=== PATIENT | female | born 1990 | race Caucasian/White ===

== ENCOUNTER 2017-02-08 20:40 | Emergency (ER) | payer OTHER ==
[~2017-02-08] VITALS: Ht 170.2 cm; Wt 120.2 kg
[2017-02-08 20:55] VITALS: TEMP 37.3; Ht 170.2 cm; Wt 120.2 kg
[2017-02-08] MEDS ORDERED: SERT-234 PO (21:29)
[2017-02-08] MEDS ORDERED: OPTIRAY 320 IV PRN (21:30)
[2017-02-08] MEDS ORDERED: BUSP-8 PO (21:33)
[2017-02-08 21:45] LABS: MEAN CELL VOLUME 80.9 fL (80-100); MEAN CORPUSCULAR HGB CONC 35.9 g/dl (32-36); PLATELET COUNT 285 K/uL (130-400); RED BLOOD COUNT 5.07 M/uL (4.2-5.4); WHITE BLOOD COUNT 9.64 K/uL (4.8-10.8)
[2017-02-08 21:50] LABS: ISTAT IONIZED CALCIUM 1.17 mmol/l (1.12-1.32)
--- NOTE | 2017-02-08 22:01 | DIAGNOSTIC IMAGING REPORT ---
ABD/PELVIS IV CONTRAST ONLY CT DOSE: 1745.91 mGy.cm HISTORY: Flank pain rt lower abd pain TECHNIQUE: Multiaxial CT images of the abdomen and pelvis were performed following the use of intravenous contrast. A dose lowering technique was utilized adhering to the principles of ALARA. COMPARISON STUDY: None. FINDINGS: The lung bases are clear. The liver, spleen, gallbladder, pancreas, kidneys, and adrenal glands are within normal limits. No bowel wall thickening or obstruction. The pelvic organs are unremarkable. No suspicious lytic or blastic osseous lesions. The appendix is normal. Several mesenteric nodes somewhat more prominent in the right mid abdominal region. This consistent with a component of mesenteric adenitis. Chronic sigmoid diverticulosis. No evidence for acute diverticulitis. IMPRESSION: 1. Mild/moderate mesenteric adenitis. 2. Normal appendix. 3. Chronic sigmoid diverticulosis. 4. Mild fatty infiltration of liver. The above report was generated using voice recognition software. It may contain grammatical, syntax or spelling errors. Electronically signed by: Ayush Christiansen M.D. 02/08/2017 10:00 PM Dictated Date/Time: 02/08/2017 9:58 PM
[2017-02-08 22:31] LABS: MANUAL MICROSCOPIC REQUIRED? NO; REVIEW REQ? NO; URINE APPEARANCE CLOUDY (CLEAR); URINE BILIRUBIN NEG (NEG); URINE COLOR YELLOW; URINE EPITHELIAL CELL AUTO >30 /lpf (0-5); URINE NITRITE NEG (NEG); URINE PH 7.5 (4.5-7.5); URINE SPECIFIC GRAVITY 1.018 (1.000-1.030); UROBILINOGEN NEG (NEG); ZZUR CULT IF INDIC CLEAN CATCH NO
--- NOTE | 2017-02-08 22:41 | EMERGENCY ROOM VISIT NOTE ---
History Report prepared by Whitney: Bijal Ricardo Under the Supervision of: Dr. Anders Boone D.O. First contact with patient: 21:06 Chief Complaint: ABDOMINAL PAIN Stated Complaint: STOMACH PAIN,NAUSEA,BACK PAIN History of Present Illness The patient is a 26 year old female who presents to the Emergency Room with complaints of constant stabbing abdominal pain beginning yesterday morning. The patient states that she is mainly having abdominal pain and her lower back has also been hurting since yesterday morning when she woke up. She notes that the abdominal pain started when she woke up and the other symptoms gradually worsened. She reports that she has had nausea and fatigue and after going to urgent care today, she was told to come here. The patient notes that they were concerned of appendicitis. She notes that her LNMP was just over 1 month ago. She denies any history of . Source of History: patient Onset: yesterday morning Position: abdomen Quality: stabbing Timing: constant Associated Symptoms: + nausea, + back pain Note: Pt complains of general fatigue. Review of Systems See HPI for pertinent positives & negatives. A total of 10 systems reviewed and were otherwise negative. Past Medical & Surgical Surgical Problems: (1) Hx of tonsillectomy Family History Cancer Diabetes mellitus Gallbladder disease Heart disease Hypertension Kidney disease Kidney stones Seizures Social History Smoking Status: Never Smoker Smokeless Tobacco Use: No Alcohol Use: none Marital Status: Housing Status: lives with family Occupation Status: employed Current/Historical Medications Scheduled Buspirone Hcl (Buspirone Hcl), 10 MG PO BID Sertraline (Zoloft), 100 MG PO DAILY Allergies Coded Allergies: Brianna (Verified Allergy, Severe, Throat Closes, 02/08/17) Aspirin (Verified Allergy, Intermediate, Stomach cramping and hives, ) Physical Exam Vital Signs Date Time Temp Pulse Resp B/P (MAP) Pulse Ox O2 Delivery O2 Flow Rate FiO2 02/08/17 20:55 37.3 90 18 147/90 99 Room Air Physical Exam CONSTITUTIONAL/VITAL SIGNS: Reviewed / noted above. GENERAL: Non-toxic in appearance. INTEGUMENTARY: Warm, dry, and [place]. HEAD: Normocephalic. EYES: without scleral icterus or trauma. ENT/OROPHARYNX: clear and moist. LYMPHADENOPATHY/NECK: Is supple without lymphadenopathy or meningismus. RESPIRATORY: Lungs clear and equal. CARDIOVASCULAR: Regular rate and rhythm. GI/ABDOMEN: Soft, tenderness to palpation to right mid abdominal region. No organomegaly or pulsatile mass. No rebound or guarding. Normal bowel sounds. EXTREMITIES: Warm and well perfused. BACK: No CVA tenderness. NEUROLOGICAL: Intact without focal deficits. PSYCHIATRIC: normal affect. MUSCULOSKELETAL: Normally developed with good muscle tone. Medical Decision & Procedures ER Provider Diagnostic Interpretation: CT results as stated below per my review and radiologist interpretation: ABD/PELVIS IV CONTRAST ONLY FINDINGS: The lung bases are clear. The liver, spleen, gallbladder, pancreas, kidneys, and adrenal glands are within normal limits. No bowel wall thickening or obstruction. The pelvic organs are unremarkable. No suspicious lytic or blastic osseous lesions. The appendix is normal. Several mesenteric nodes somewhat more prominent in the right mid abdominal region. This consistent with a component of mesenteric adenitis. Chronic sigmoid diverticulosis. No evidence for acute diverticulitis. IMPRESSION: 1. Mild/moderate mesenteric adenitis. 2. Normal appendix. 3. Chronic sigmoid diverticulosis. 4. Mild fatty infiltration of liver. The above report was generated using voice recognition software. It may contain grammatical, syntax or spelling errors. Electronically signed by: Ayush Christiansen M.D. 02/08/2017 10:00 PM Dictated Date/Time: 02/08/2017 9:58 PM Laboratory Results 02/08/17 21:29 Test 02/08/17 21:29 02/08/17 21:37 Red Blood Count 5.07 M/uL (4.2-5.4) Mean Corpuscular Volume 80.9 fL (80-100) Mean Corpuscular Hemoglobin 29.0 pg (25-34) Mean Corpuscular Hemoglobin Concent 35.9 g/dl (32-36) RDW Standard Deviation 36.6 fL (36.4-46.3) RDW Coefficient of Variation 12.6 % (11.5-14.5) Mean Platelet Volume 10.0 fL (7.4-10.4) Urine Color YELLOW Urine Appearance CLOUDY (CLEAR) Urine pH 7.5 (4.5-7.5) Urine Specific [place] 1.018 (1.000-1.030) Urine Protein NEG (NEG) Urine Glucose (UA) NEG (NEG) Urine Ketones NEG (NEG) Urine Occult Blood NEG (NEG) Urine Nitrite NEG (NEG) Urine Bilirubin NEG (NEG) Urine Urobilinogen NEG (NEG) Urine Leukocyte Esterase NEG (NEG) Urine WBC (Auto) 1-5 /hpf (0-5) Urine RBC (Auto) 5-10 /hpf (0-4) Urine Hyaline Casts (Auto) 1-5 /lpf (0-5) Urine Epithelial Cells (Auto) >30 /lpf (0-5) Urine Bacteria (Auto) NEG (NEG) Urine Test NEG (NEG) Bedside Hemoglobin 15.0 g/dl (12.0-16.0) Bedside Hematocrit 44 % (37-47) Bedside Sodium 141 mEq/L (135-144) Bedside Potassium 3.7 mEq/L (3.3-5.0) Bedside Chloride 104 mEq/L (101-112) Bedside Total CO2 25 mEq/l (24-31) Anion Gap 17.0 mmol/L (16-25) Bedside Blood Urea Nitrogen 17 mg/dl (7-18) Bedside Creatinine 1.0 mg/dl (0.6-1.3) Bedside Glucose (other) 95 mg/dl (70-99) Bedside Ionized Calcium (Rosario) 1.17 mmol/l (1.12-1.32) Laboratory results as stated above per my review. ED Course 2105: Previous medical records were reviewed. The patient was evaluated in room B10. A complete history and physical examination was performed. Medical Decision Differential considered: pancreatitis, hepatitis, or acute cholecystitis, AAA, UTI, pyelonephritis, kidney stones, appendicitis, diverticulitis, shingles, bowel obstruction mesenteric ischemia, intussusception,hernia, ovarian torsion , ruptured ovarian cyst,ectopic , . This is a 26-year-old female who presents to the ED with a chief complaint of right-sided abdominal pain. She was referred from the local urgent care. The patient reports symptoms onset yesterday morning when she awoke. She had some nausea associated with her symptoms. The patient on exam has some right mid abdominal tenderness. A CT scan of the abdomen and pelvis reveals findings suggesting mesenteric adenitis. test is negative. Urine did not show infection. CBC and CMP were unremarkable. The patient was told the results. The patient is felt to be stable for discharge and outpatient follow- up. Medication Reconcilliation Current Medication List: was personally reviewed by me Blood Pressure Screening Patient's blood pressure: Elevated blood pressure Blood pressure disposition: Elevated BP felt to be situational Impression Primary Impression: Mesenteric adenitis Scribe Attestation The scribe's documentation has been prepared under my direction and personally reviewed by me in its entirety. I confirm that the note above accurately reflects all work, treatment, procedures, and medical decision making performed by me. Departure Information Dispostion Home / Self-Care Patient Instructions My [facility] Additional Instructions Follow-up with your doctor for further care and evaluation in 1-2 days if symptoms. Return to the emergency department for worsening or new symptoms or any concerns. You have been examined and treated today on an emergency basis only. This is not a substitute for, or an effort to provide, complete comprehensive medical care. It is impossible to recognize and treat all injuries or illnesses in a single emergency department visit. It is therefore important that you follow up closely with your doctor. Call as soon as possible for an appointment.
[2017-02-08 22:52] VITALS: BP 97/70; PULSE 80; O2SAT 97
== END 2017-02-08 22:53 | disposition home or self-care (01) ==
LOC: C.EDB 20:41
DX: I88.0 Nonspecific mesenteric lymphadenitis (principal); Z80.9 Family history of malignant neoplasm, unspecified; Z83.3 Family history of diabetes mellitus; Z83.79 Family history of other diseases of the digestive system; Z82.49 Family history of ischemic heart disease and other diseases of the circulatory system; Z84.1 Family history of disorders of kidney and ureter; Z79.899 Other long term (current) drug therapy

== ENCOUNTER 2018-08-24 11:45 | Observation (INO) ==
[2018-08-24] MEDS ORDERED: ONDANSETRON INJ 2 MG/ML 2 ML VIAL IV STA (11:55)
[2018-08-24] MEDS ORDERED: MoRPHine SULFATE 4 MG/ML 1 ML CARP\\VIAL IV STA ×2 (11:55→14:28)
[2018-08-24] MEDS ORDERED: SODIUM CHLORIDE 0.9% 1000ML 1,000 ML IV SCH (12:00)
[2018-08-24 12:14] LABS: Basophils # (auto) 0.02 K/uL (0-0.2); Basophils % (auto) 0.1 %; Eosinophils # (auto) 0.02 K/uL (0-0.5); Eosinophils % (auto) 0.1 %; Hematocrit (blood only) 41.2 % (37-47); Hemoglobin 14.9 g/dL (12.0-16.0); Immature Granulocytes # (auto) 0.05 K/uL (0.00-0.02); Immature Granulocytes % (auto) 0.3 %; Lymphocytes # (auto) 1.66 K/uL (1.2-3.4); Mean Corpuscular Hgb Conc 36.2 g/dL (32-36); Mean Corpuscular Volume 76.9 fL (80-100); Mean Platelet Volume 10.2 fL (7.4-10.4); Monocytes # (auto) 1.02 K/uL (0.11-0.59); Monocytes % (auto) 6.8 %; Neutrophils # (auto) 12.27 K/uL (1.4-6.5); Neutrophils % (auto) 81.7 %; Platelet Count 291 K/uL (130-400); RDW Coefficient of Variation 14.3 % (11.5-14.5); RDW Standard Deviation 40.1 fL (36.4-46.3); Red Blood Count 5.36 M/uL (4.2-5.4); White Blood Count 15.04 K/uL (4.8-10.8)
[2018-08-24 12:37] LABS: Albumin Globulin Ratio 1.1 (0.9-2); Albumin Level 4.4 gm/dl (3.4-5.0); BUN Creatinine Ratio 15.5 (10-20); Bilirubin,Total 0.8 mg/dl (0.2-1); Calcium 9.9 mg/dl (8.5-10.1); Creatinine Clr Calc Pharmacy 125.5 ml/min; Est GFR (Non-African American) 85.4; Globulin 3.8 gm/dl (2.5-4.0); Total Protein 8.2 gm/dl (6.4-8.2)
[2018-08-24 12:47] LABS: Potassium 3.7 mmol/L (3.5-5.1)
--- NOTE | 2018-08-24 13:23 | Ultrasound Report ---
US gallbladder CLINICAL HISTORY: 27 years-old Female presenting with RUQ pain. TECHNIQUE: Real-time grayscale and limited color Doppler ultrasound imaging of the abdomen limited to the right upper quadrant was performed. COMPARISON: None. FINDINGS: Pancreas: Visualized portions of the pancreatic head and body normal. Liver: Moderately hyperechogenic parenchyma with partial obscuration of the right hemidiaphragm, like ly indicating moderate steatosis. The liver measures 17.4 cm in maximal sagittal dimension. No sonogr aphic evidence of hepatic mass. Main portal vein patent with normal directional flow. Biliary: No intrahepatic biliary ductal dilatation. Common bile duct measures up to 5 mm in diameter. Gallbladder: Nonmobile gallstone at the gallbladder neck measuring 1.5 cm. Gallbladder sludge also ap parent. No gallbladder wall thickening, pericholecystic fluid or inflammatory change. The gallbladder is not convincingly pathologically distended. Sonographic Bender's sign positive. Right kidney: Normal in appearance without evidence of hydronephrosis. Ascites: None. Other: None. IMPRESSION: 1. Cholelithiasis. Cholecystitis is not favored though the positive sonographic Bender's sign makes this study equivocal for this diagnosis. Further evaluation with nuclear medicine HIDA scan to be con sidered if there is clinical concern. 2. Hepatic steatosis. Correlate with liver function tests to exclude steatohepatitis as a cause for abdominal pain. Electronically signed by: Helder Melton M.D. 08/24/2018 1:21 PM
[2018-08-24 14:07] LABS: Appearance Urine Cloudy (Clear); Bacteria Urine Automated Negative (Negative); Bilirubin Urine Negative (Negative); Color Urine Yellow; Epithelial Cell Urine Auto >30 /lpf (0-5); Glucose Urine UA Negative (Negative); Ketones Urine 1+ (Negative); Leukocyte Esterase Urine Trace (Negative); Nitrite Urine Negative (Negative); Protein Urine Negative (Negative); Specific Gravity Urine 1.014 (1.000-1.030); Urobilinogen Urine Negative (Negative)
--- NOTE | 2018-08-24 14:14 | History & Physical Report ---
Date of Service August 24, 2018 Assessment & Plan (1) Cholelithiasis: gallbladder likely source of her pain. discussed options discussed risks ( bleeding/infection/dvt/pe/mi/cva/bile leaks/injury to another organ etc...) questions answered she would like to proceed with odilon jaimee today. will contact the OR and proceed ilia. History of Present Illness Primary Care Provider: Phuong Jamison DO pt woke up around 4 AM with RUQ pain and nausea. did not subside so she presented to the ER. US shows gallstone in neck with equivocal Bender's sign. no pericholecystic fluid. Allergies Allergy/AdvReac Type Severity Reaction Status Date / Time long Allergy Severe Throat Verified 08/24/18 12:06 Closes aspirin Allergy Intermediate Stomach Verified 08/24/18 12:06 cramping and hives Home Medications Home Medications Medication Instructions Recorded Confirmed Type cholecalciferol (vitamin D3) 1,000 unit PO DAILY 08/24/18 08/24/18 History [Vitamin D3] ferrous sulfate [iron] 325 mg PO DAILY 08/24/18 08/24/18 History sertraline [Zoloft] 150 mg PO DAILY 08/24/18 08/24/18 History Past Med/Surg History Medical History No active medical problems (Acute) Social History Feels Safe at Home: Yes Smoking Status: Never smoker Review of Systems All systems reviewed & are unremarkable except as noted in HPI & below Physical Exam Vital Signs (Past 24 Hours): Last Vital Signs Temp 36.8 C 08/24/18 11:49 Pulse 56 L 08/24/18 13:46 Resp 16 08/24/18 13:46 BP 141/82 H 08/24/18 13:46 Pulse Ox 99 08/24/18 13:46 Physical Exam: alert. mild distress secondary to pain Heent: pearla. eomi. no jaundice Heart: RRR Lungs: CTA b/l Abd: soft. + RUQ ttp. +guarding ext: no c/c/e
[2018-08-24] MEDS ORDERED: ONDANSETRON INJ 2 MG/ML 2 ML VIAL ONE ×2 (14:37→14:41)
[2018-08-24] MEDS ORDERED: SUCCINYLCHOLINE CHLORIDE 20 MG/ML 10 ML VIAL ONE (14:41)
[2018-08-24] MEDS ORDERED: PROPOFOL IV EMULSION 10 MG/ML 20 ML VIAL IV ONE (14:41)
[2018-08-24] MEDS ORDERED: PHENYLEPHRINE HCL 10 MG/ML VIAL ONE (14:41)
[2018-08-24] MEDS ORDERED: NEOSTIGMINE METHYLSULFATE 5 MG/5 ML SYR ONE (14:41)
[2018-08-24] MEDS ORDERED: LIDOCAINE HCL 2% 2 ML VIAL/AMP(20MG/ML) INFIL ONE (14:41)
[2018-08-24] MEDS ORDERED: DEXAMETHASONE SOD INJ 4 MG/ML VIAL ONE ×2 (14:41→15:55)
[2018-08-24] MEDS ORDERED: ePHEDrine sulfate 50 MG/ML AMP ONE (14:41)
[2018-08-24] MEDS ORDERED: GLYCOPYRROLATE 0.2 MG/ML VIAL ONE (14:41)
[2018-08-24] MEDS ORDERED: fentaNYL citrate 100 MCG/2 ML VIAL ONE ×2 (14:42→16:00)
[2018-08-24] MEDS ORDERED: MIDAZOLAM HCL 1 MG/ML 2ML VIAL ONE (14:42)
--- NOTE | 2018-08-24 15:06 | Anesthesiology Consultation ---
Date of Service August 24, 2018 Assessment & Plan (1) Encounter for pre-operative examination: Chart Review Chart Review: Acceptable Risk for Surgery and Patient NOT seen in Pre Admission Testing Consults Requested none NPO Date Last Intake of Fluids: 08/24/18 Time Last Intake of Fluids: 06:00 Date Last Intake of Solids: 08/23/18 Time Last Intake of Solids: 21:00 History Surgery Operation Date: 08/24/18 15:10 Proposed Procedures p Laparoscopic Cholecystectomy - Lui Luciano DO Height/Weight Height: 5 ft 7 in Weight: 122.5 kg Allergies Allergy/AdvReac Type Severity Reaction Status Date / Time long Allergy Severe Throat Verified 08/24/18 12:06 Closes aspirin Allergy Intermediate Stomach Verified 08/24/18 12:06 cramping and hives Medications Home Medications Medication Instructions Recorded Confirmed Last Taken cholecalciferol (vitamin D3) 1,000 unit PO DAILY 08/24/18 08/24/18 Unknown [Vitamin D3] ferrous sulfate [iron] 325 mg PO DAILY 08/24/18 08/24/18 Unknown hydrocodone-acetaminophen [[place]] 1 - 2 tab PO Q4H #15 tab 08/24/18 Unknown sertraline [Zoloft] 150 mg PO DAILY 08/24/18 08/24/18 Unknown Past Medical History Medical History No active medical problems (Acute) Depression GERD (gastroesophageal reflux disease) Obesity Past Surgical History Surgical History History of tonsillectomy and adenoidectomy Social History Smoking Status: Never smoker Physical Exam Vital Signs Last Vital Signs Temp 36.7 C 08/24/18 15:00 Pulse 83 08/24/18 15:00 Resp 16 08/24/18 15:00 BP 135/79 08/24/18 15:00 Pulse Ox 99 08/24/18 15:00 Testing Laboratory Results 08/24/18 12:08 08/24/18 12:08 Urine Color Yellow 08/24/18 13:40 Urine Appearance Cloudy (Clear) H 08/24/18 13:40 Urine pH 5.0 (4.5-7.5) 08/24/18 13:40 Ur Specific [place] 1.014 (1.000-1.030) 08/24/18 13:40 Urine Protein Negative (Negative) 08/24/18 13:40 Urine Glucose (UA) Negative (Negative) 08/24/18 13:40 Urine Ketones 1+ (Negative) H 08/24/18 13:40 Urine Nitrite Negative (Negative) 08/24/18 13:40 Ur Leukocyte Esterase Trace (Negative) H 08/24/18 13:40 Urine WBC (Auto) 1-5 /hpf (0-5) 08/24/18 13:40 Urine RBC (Auto) 0-4 /hpf (0-4) 08/24/18 13:40 U Hyaline Cast (Auto) 1-5 /lpf (0-5) 08/24/18 13:40 U Epithel Cells (Auto) >30 /lpf (0-5) H 08/24/18 13:40 Urine Bacteria (Auto) Negative (Negative) 08/24/18 13:40 08/24/18 13:40 POC Ur Test NEG
[2018-08-24] MEDS ORDERED: ePHEDrine sulfate 50 MG/ML AMP IV PRN (15:08)
[2018-08-24] MEDS ORDERED: LABETALOL HCL IV 5 MG/ML 20ML IV PRN (15:08)
[2018-08-24] MEDS ORDERED: ONDANSETRON INJ 2 MG/ML 2 ML VIAL IV PRN (15:08)
[2018-08-24] MEDS ORDERED: fentaNYL citrate 100 MCG/2 ML VIAL IV PRN (15:08)
[2018-08-24] MEDS ORDERED: PHENYLEPHRINE 100MCG/ML 5ML SYR IV PRN (15:08)
[2018-08-24] MEDS ORDERED: MEPERIDINE HCL 25 MG/ML CARP IV PRN (15:08)
[2018-08-24] MEDS ORDERED: HYDROmorphone INJ 1 MG/ML SYRINGE IV PRN (15:08)
[2018-08-24] MEDS ORDERED: ATROPINE SULFATE 0.1 MG/ML 10ML SYR IV PRN (15:08)
[2018-08-24] MEDS ORDERED: BUPIVACAINE/EPINEPHRINE 0.5% MPF 1:200,000 30 ML VIAL ONE (15:16)
[2018-08-24] MEDS ORDERED: WATER, STERILE FOR INJ 10 ML VIAL ONE (15:45)
[2018-08-24] MEDS ORDERED: raNITIdine HCl 25 MG/ML VIAL ONE (15:55)
[2018-08-24] MEDS ORDERED: METOCLOPRAMIDE HCL INJ 5 MG/ML 2 ML VIAL ONE (15:55)
[2018-08-24] MEDS ORDERED: LABETALOL HCL IV 5 MG/ML 20ML IV ONE (16:15)
--- NOTE | 2018-08-24 16:51 | Operative Report ---
Post Operative Report Pre & Post Diagnosis Operation Date: 08/24/18 15:10 Pre-Op Diagnosis: Cholelithiasis Post-Op Diagnosis: Cholelithiasis, Acute Appendicitis Procedure Operation Date: 08/24/18 15:10 Actual Procedures p Laparoscopic Cholecystectomy, Laparoscopic Appendectomy - Lui Luciano DO Surgeon Lui Luciano DO Hr Assistant janey Matthews Estimated Blood Loss 5 Findings Consistent with Post-Op Diagnosis Specimens 1. gallbladder 2. appendix Description of Procedure After informed consent was obtained the patient was taken to the operating room and placed in supine position. After successful intubation the abdomen was sterilely prepped and draped in usual fashion. A supra umbilical incision was made with an 11 blade scalpel and carried down through the soft tissue using cautery. The anterior rectus fascia was opened using electrocautery and 2 #0 Vicryl stay sutures were placed. Peritoneum was elevated with hemostats and incised under direct vision using a Metzenbaum scissor. A finger sweep was performed and a 12 mm Pichardo trocar was placed. The abdomen was insufflated to 20 mmHg. A laparoscope was inserted and the abdomen was examined in 360. There was no free fluid and initially no gross abnormality other than a very distended gallbladder. A subxiphoid 5 mm port and 2 right upper quadrant 5 mm ports were placed under direct vision. The gallbladder did appear slightly thickened edematous and very firm. We were able to grasp it and elevate it superiorly and laterally. I took down adhesions around the neck of the gallbladder using [place] dissector. I was able to skeletonize the cystic duct and clipped it twice partly once distally and transect it. In similar fashion the cystic artery was identified skeletonized clipped and divided. Electrocautery was used to remove the gallbladder from the gallbladder fossa. A small hole was made during this process. The bile was immediately suctioned up and irrigated. Once we removed it the entire gallbladder was placed into an Endo Catch bag and removed from the camera port site. Any small bleeding points in the gallbladder fossa were controlled using cautery. Final irrigation was performed. There was adequate hemostasis and no evidence of any bile leaks at the end of the procedure. I looked around the remainder of the abdomen. Surprisingly the patient had an acutely inflamed appendix which is likely the etiology of her symptoms. It had not perforated but was clearly acutely infected. We placed an additional 12 mm trocar in the left lower quadrant. We were able to manipulate it and use a JENIFFER purple cartridge stapler to transect both the mesentery of the appendix as well as the appendix itself at its base with the cecum. It was placed into a second Endo Catch bag and again removed from the camera port site. There was adequate hemostasis. We thoroughly irrigated the pelvis and right lower quadrant. No other abnormalities were seen. At the end of the entire procedure there was hemostasis in both surgical sites. The 12 mm trocar was the [place] fascial closure trocar. We used a fascial closure device and inserted 0 Vicryl through the one opening and then grabbed it by placing the fascial closure device through the second opening. We then removed the trochars and used the 0 Vicryl to close the fascial defect. The remainder of the trochars were all removed and the abdomen was desufflated. The fascia the camera port was closed using 0 Vicryl [id number] fashion. All the wounds were irrigated and closed using 4-0 Monocryl. Marcaine was injected around them for postoperative analgesia and skin glue used as a dressing. Patient was awakened extubated transferred to recovery in stable condition. My physician events and promotions assistant was present for the entire case. He helped prep the patient. He helped retract and expose for trocar placement ,helped manipulate the organs as well as run the camera during my dissection. He also helped with wound closure and dressing placement. I attest to the content of the Intraoperative Record and any orders documented therein. Any exceptions are noted below.
--- NOTE | 2018-08-24 17:23 | Emergency Department Note ---
Entered by Cara Funez acting as a scribe for Aracely Meng MD History of Present Illness General Chief complaint: Abdominal Pain Stated complaint: SEVERE STOMACH PAIN Source: patient History of Present Illness Provider complaint: abdominal pain Onset (ago): hour(s) (0400 this morning) Location: abdomen Pain Consistency: + other (worsening) Maximum Pain Intensity: 10 Quality: + other (pain) Associated symptoms: + denies other symptoms (denies diarrhea) and + nausea/vomiting (nausea, no vomiting) The patient is a 27 year old female who presents to the Emergency Room with complaints of worsening abdominal pain beginning at 0400 this morning. She rates her pain at a 10/10 and states that the pain is "worse than labor." The patient states that last night she ate rice and chicken. The patient states that she gave on January 13. She states that she has had multiple bowel movements today. She denies having diarrhea and vomiting but does report being nauseous. The patient states that she lost 12 pounds in about 1 month. The patient states that she has been counting calories to get back to her weight prior to being . The patient reports no active medical problems. Home Medications Home Medications Medication Instructions Recorded Confirmed Type cholecalciferol (vitamin D3) 1,000 unit PO DAILY 08/24/18 08/24/18 History [Vitamin D3] ferrous sulfate [iron] 325 mg PO DAILY 08/24/18 08/24/18 History hydrocodone-acetaminophen [Eccles] 1 - 2 tab PO Q4H #15 tab 08/24/18 Rx sertraline [Zoloft] 150 mg PO DAILY 08/24/18 08/24/18 History Allergies Allergy/AdvReac Type Severity Reaction Status Date / Time long Allergy Severe Throat Verified 08/24/18 12:06 Closes aspirin Allergy Intermediate Stomach Verified 08/24/18 12:06 cramping and hives Past Med/Surg History Medical History No active medical problems (Acute) Depression GERD (gastroesophageal reflux disease) Obesity Surgical History History of tonsillectomy and adenoidectomy Social History Feels Safe at Home: Yes Smoking Status: Never smoker Review of Systems See HPI for pertinent positives & negatives. and A total of 10 systems reviewed and were otherwise negative Physical Exam Vital Signs Vital Signs - 24 hr 08/25/18 11:58 08/25/18 15:05 08/25/18 15:09 Temperature 36.6 C 36.6 C Temperature Source Oral Oral Pulse Rate [Left Finger] 62 68 Respiratory Rate 18 17 Respiratory Effort / Characteristics Non-Labored Non-Labored Spontaneous Respiratory Depth Normal Normal Normal Respiratory Pattern Regular Blood Pressure [Left Arm] Blood Pressure [Right Arm] 106/66 121/67 Blood Pressure Mean [Left Arm] Blood Pressure Mean [Right Arm] 79 85 Blood Pressure Position [Left Arm] Blood Pressure Position [Right Arm] Lying Lying Pulse Oximetry 94 96 Oxygen Delivery Method Room Air Room Air Room Air 08/25/18 22:58 08/25/18 23:25 08/26/18 07:12 Temperature 36.9 C 36.4 C L Temperature Source Oral Oral Pulse Rate [Left Finger] 60 53 L Respiratory Rate 14 16 Respiratory Effort / Characteristics Non-Labored Respiratory Depth Normal Respiratory Pattern Regular Blood Pressure [Left Arm] 102/64 100/63 Blood Pressure [Right Arm] Blood Pressure Mean [Left Arm] 76 75 Blood Pressure Mean [Right Arm] Blood Pressure Position [Left Arm] Lying Lying Blood Pressure Position [Right Arm] Pulse Oximetry 96 96 Oxygen Delivery Method Room Air Room Air Room Air Vital signs reviewed. General: Well-appearing female, in some discomfort. HEENT: No scleral icterus, PERRLA, neck supple. Atraumatic. Cardiovascular: Regular rate and rhythm, no extra sounds. Pulmonary: Clear to auscultation bilaterally, normal work of breathing. Abdomen: Obese. Exam is limited by body habitus. Tenderness to palpation of the right upper quadrant with complaints of pain in the right lower quadrant. Musculoskeletal: Atraumatic, no peripheral edema. No CVA tenderness. Neurologic: Patient awake alert and oriented x 3. Skin: Warm, dry, no rash Course 1154: The patient was evaluated in room C1B, and a complete history and physical examination were performed. 1346: I updated the patient. 1348: I discussed the patient's case with Kenny Matthews PA-C General Surgery who will see the patient. 1430: The patient was admitted to Surgery. Consultations Consultation #1: Kenny Matthews PA-C General Surgery Time: 13:48 Administered Medications Hydrocodone Bitart/Acetaminophen (Eccles 5/325) 1 tab PO Q4H PRN PRN Reason: MODERATE Pain (Scale 4,5,6) Stop: 09/07/18 18:04 Last Admin: 08/26/18 07:34 Dose: 1 tab Documented by: [id number] Admin: 08/26/18 03:29 Dose: 1 tab Documented by: [id number] Admin: 08/25/18 20:17 Dose: 1 tab Documented by: [id number] Admin: 08/25/18 15:10 Dose: 1 tab Documented by: [id number] Admin: 08/25/18 09:41 Dose: 1 tab Documented by: [id number] Ferrous Sulfate (Feosol) 325 mg PO DAILY [facility] Stop: 09/24/18 08:59 Last Admin: 08/25/18 09:20 Dose: 325 mg Documented by: [id number] Morphine Sulfate (Morphine Sulfate) 4 mg IV Q1H PRN PRN Reason: MODERATE Pain (Scale 4,5,6) Stop: 09/07/18 18:04 Last Admin: 08/25/18 04:49 Dose: 4 mg Documented by: [id number] Admin: 08/24/18 23:38 Dose: 4 mg Documented by: [id number] Admin: 08/24/18 18:23 Dose: 4 mg Documented by: [id number] Ondansetron HCl (Zofran) 4 mg IV Q4H PRN PRN Reason: Nausea And Vomiting Stop: 09/23/18 18:04 Last Admin: 08/25/18 23:30 Dose: 4 mg Documented by: [id number] Admin: 08/25/18 16:24 Dose: 4 mg Documented by: [id number] Admin: 08/25/18 08:41 Dose: 4 mg Documented by: [id number] Admin: 08/25/18 04:27 Dose: 4 mg Documented by: [id number] Admin: 08/24/18 19:55 Dose: 4 mg Documented by: [id number] Sertraline HCl (Zoloft) 150 mg PO DAILY [facility] Stop: 09/24/18 08:59 Last Admin: 08/25/18 09:20 Dose: 150 mg Documented by: [id number] Discontinued Medications Bupivacaine HCl/Epinephrine Bitart (Sensorcaine/Epinephrine 0.5% Mpf 1:200,000) Confirm Administered Dose 30 ml .ROUTE .STK-MED ONE Stop: 08/24/18 15:17 Last Admin: 08/24/18 16:37 Dose: 20 ml Documented by: [id number] Sodium Chloride (Nss 1000ml) 1,000 mls @ 999 mls/hr IV .Q1H1M NIKA Stop: 08/24/18 13:00 Last Infusion: 08/24/18 13:44 Dose: 0 mls/hr Documented by: [id number] Admin: 08/24/18 12:15 Dose: 999 mls/hr Documented by: [id number] Lactated Ringer's (Lr) 1,000 mls @ 100 mls/hr IV .Q10H NIKA Stop: 09/23/18 18:29 Last Infusion: 08/25/18 14:29 Dose: 0 mls/hr Documented by: [id number] Admin: 08/25/18 07:37 Dose: 100 mls/hr Documented by: [id number] Infusion: 08/25/18 07:37 Dose: 100 mls/hr Documented by: [id number] Infusion: 08/24/18 22:04 Dose: 100 mls/hr Documented by: [id number] Infusion: 08/24/18 21:33 Dose: 0 mls/hr Documented by: [id number] Admin: 08/24/18 21:22 Dose: 100 mls/hr Documented by: [id number] Cefoxitin Sodium 2,000 mg/ (Dextrose) 60 mls @ 100 mls/hr IV Q6H NIKA Stop: 08/25/18 21:59 Last Infusion: 08/25/18 15:56 Dose: 0 mls/hr Documented by: [id number] Admin: 08/25/18 15:10 Dose: 100 mls/hr Documented by: [id number] Infusion: 08/25/18 10:29 Dose: 0 mls/hr Documented by: [id number] Admin: 08/25/18 09:43 Dose: 100 mls/hr Documented by: [id number] Infusion: 08/25/18 05:12 Dose: 0 mls/hr Documented by: [id number] Admin: 08/25/18 04:26 Dose: 100 mls/hr Documented by: [id number] Infusion: 08/24/18 22:04 Dose: 0 mls/hr Documented by: [id number] Admin: 08/24/18 21:28 Dose: 100 mls/hr Documented by: [id number] Morphine Sulfate (Morphine Sulfate) 4 mg IV NOW [facility] Stop: 08/24/18 11:56 Last Admin: 08/24/18 12:14 Dose: 4 mg Documented by: [id number] Morphine Sulfate (Morphine Sulfate) 4 mg IV NOW STA Stop: 08/24/18 14:29 Last Admin: 08/24/18 14:33 Dose: 4 mg Documented by: [id number] Ondansetron HCl (Zofran) 4 mg IV NOW STA Stop: 08/24/18 11:56 Last Admin: 08/24/18 12:14 Dose: 4 mg Documented by: [id number] Ondansetron HCl (Zofran) Confirm Administered Dose 4 mg .ROUTE .STK-MED ONE Stop: 08/24/18 14:38 Last Admin: 08/24/18 14:39 Dose: 4 mg Documented by: [id number] Medical Decision Making Differential Diagnosis Differential diagnosis: Etiologies such as biliary colic, cholecystitis, hepatitis, perihepatitis, pancreatitis, cardiac disease, pancreatitis, gastritis, peptic ulcer disease, appendicitis, ovarian cyst, ovarian torsion, ectopic , pelvic inflammatory disease, cystitis, diverticulitis, mesenteric ischemia, inflammatory bowel disease, ileus, bowel obstruction, aortic pathology, shingles, as well as others were considered. Medical Records Attestation: I reviewed the patient's medical records. Home Medications Current Medication List: was personally reviewed by me Laboratory Data Attestation: I reviewed the patient's lab results. Result diagrams: 08/26/18 06:44 08/25/18 06:06 Lab Results 08/24/18 08/24/18 08/24/18 Range/Units 12:08 12:08 13:40 WBC 15.04 H (4.8-10.8) K/uL RBC 5.36 (4.2-5.4) M/uL Hgb 14.9 (12.0-16.0) g/dL Hct 41.2 (37-47) % MCV 76.9 L (80-100) fL MCH 27.8 (25-34) pg MCHC 36.2 H (32-36) g/dL RDW Std Deviation 40.1 (36.4-46.3) fL RDW Coeff of Shazia 14.3 (11.5-14.5) % Plt Count 291 (130-400) K/uL MPV 10.2 (7.4-10.4) fL Immature Gran % (Auto) 0.3 % Neut % (Auto) 81.7 % Lymph % (Auto) 11.0 % York % (Auto) 6.8 % Eos % (Auto) 0.1 % Baso % (Auto) 0.1 % Immature Gran # (Auto) 0.05 H (0.00-0.02) K/uL Neut # (Auto) 12.27 H (1.4-6.5) K/uL Lymph # (Auto) 1.66 (1.2-3.4) K/uL York # (Auto) 1.02 H (0.11-0.59) K/uL Eos # (Auto) 0.02 (0-0.5) K/uL Baso # (Auto) 0.02 (0-0.2) K/uL Sodium 137 (136-145) mmol/L Potassium 3.7 (3.5-5.1) mmol/L Chloride 105 (98-107) mmol/L Carbon Dioxide 24 (21-32) mmol/L Anion Gap 8.0 (3-11) BUN 14 (7-18) mg/dl Creatinine 0.93 (0.6-1.2) mg/dl Est Cr Clr Drug Dosing 125.5 ml/min Est GFR ( Amer) 99.0 Est GFR (Non-Af Amer) 85.4 BUN/Creatinine Ratio 15.5 (10-20) Glucose 85 (70-99) mg/dl Calcium 9.9 (8.5-10.1) mg/dl Total Bilirubin 0.8 (0.2-1) mg/dl AST 22 (15-37) U/L ALT 36 (12-78) U/L Alkaline Phosphatase 57 (45-117) U/L Total Protein 8.2 (6.4-8.2) gm/dl Albumin 4.4 (3.4-5.0) gm/dl Globulin 3.8 (2.5-4.0) gm/dl Albumin/Globulin Ratio 1.1 (0.9-2) Lipase 55 L (73-393) U/L Urine Color Urine Appearance (Clear) Urine pH (4.5-7.5) POC Urine pH 5 (4.5-7.5) Ur Specific Vaughan (1.000-1.030) Urine Protein (Negative) POC Urine Protein Trace H (Negative) Urine Glucose (UA) (Negative) POC Ur Glucose (UA) Normal (Normal) Urine Ketones (Negative) POC Urine Ketones 2+ (Moderate) H (Negative) Urine Blood (Negative) POC Urine Blood 250 H (Negative) Urine Nitrite (Negative) POC Urine Nitrite Negative (Negative) Urine Bilirubin (Negative) POC Urine Bilirubin Negative (Negative) Urine Urobilinogen (Negative) POC Urine Urobilinogen Normal (Normal) Ur Leukocyte Esterase (Negative) POC U Leukocyte Esteras 1+ H (Negative) Urine WBC (Auto) (0-5) /hpf Urine RBC (Auto) (0-4) /hpf U Hyaline Cast (Auto) (0-5) /lpf U Epithel Cells (Auto) (0-5) /lpf Urine Bacteria (Auto) (Negative) Urine Yeast POC Ur Test (NEG) 08/24/18 08/24/18 08/25/18 Range/Units 13:40 13:40 06:06 WBC 13.37 H (4.8-10.8) K/uL RBC 4.85 (4.2-5.4) M/uL Hgb 13.2 (12.0-16.0) g/dL Hct 38.4 (37-47) % MCV 79.2 L (80-100) fL MCH 27.2 (25-34) pg MCHC 34.4 (32-36) g/dL RDW Std Deviation 40.8 (36.4-46.3) fL RDW Coeff of Shazia 14.5 (11.5-14.5) % Plt Count 268 (130-400) K/uL MPV 10.0 (7.4-10.4) fL Immature Gran % (Auto) 0.2 % Neut % (Auto) 80.7 % Lymph % (Auto) 10.8 % York % (Auto) 8.2 % Eos % (Auto) 0.0 % Baso % (Auto) 0.1 % Immature Gran # (Auto) 0.03 H (0.00-0.02) K/uL Neut # (Auto) 10.80 H (1.4-6.5) K/uL Lymph # (Auto) 1.44 (1.2-3.4) K/uL York # (Auto) 1.09 H (0.11-0.59) K/uL Eos # (Auto) 0.00 (0-0.5) K/uL Baso # (Auto) 0.01 (0-0.2) K/uL Sodium (136-145) mmol/L Potassium (3.5-5.1) mmol/L Chloride (98-107) mmol/L Carbon Dioxide (21-32) mmol/L Anion Gap (3-11) BUN (7-18) mg/dl Creatinine (0.6-1.2) mg/dl Est Cr Clr Drug Dosing ml/min Est GFR ( Amer) Est GFR (Non-Af Amer) BUN/Creatinine Ratio (10-20) Glucose (70-99) mg/dl Calcium (8.5-10.1) mg/dl Total Bilirubin (0.2-1) mg/dl AST (15-37) U/L ALT (12-78) U/L Alkaline Phosphatase (45-117) U/L Total Protein (6.4-8.2) gm/dl Albumin (3.4-5.0) gm/dl Globulin (2.5-4.0) gm/dl Albumin/Globulin Ratio (0.9-2) Lipase (73-393) U/L Urine Color Yellow Urine Appearance Cloudy H (Clear) Urine pH 5.0 (4.5-7.5) POC Urine pH (4.5-7.5) Ur Specific Vaughan 1.014 (1.000-1.030) Urine Protein Negative (Negative) POC Urine Protein (Negative) Urine Glucose (UA) Negative (Negative) POC Ur Glucose (UA) (Normal) Urine Ketones 1+ H (Negative) POC Urine Ketones (Negative) Urine Blood 2+ H (Negative) POC Urine Blood (Negative) Urine Nitrite Negative (Negative) POC Urine Nitrite (Negative) Urine Bilirubin Negative (Negative) POC Urine Bilirubin (Negative) Urine Urobilinogen Negative (Negative) POC Urine Urobilinogen (Normal) Ur Leukocyte Esterase Trace H (Negative) POC U Leukocyte Esteras (Negative) Urine WBC (Auto) 1-5 (0-5) /hpf Urine RBC (Auto) 0-4 (0-4) /hpf U Hyaline Cast (Auto) 1-5 (0-5) /lpf U Epithel Cells (Auto) >30 H (0-5) /lpf Urine Bacteria (Auto) Negative (Negative) Urine Yeast Not Reportable POC Ur Test NEG (NEG) 08/25/18 08/26/18 Range/Units 06:06 06:44 WBC 7.79 (4.8-10.8) K/uL RBC 4.47 (4.2-5.4) M/uL Hgb 12.3 (12.0-16.0) g/dL Hct 36.2 L (37-47) % MCV 81.0 (80-100) fL MCH 27.5 (25-34) pg MCHC 34.0 (32-36) g/dL RDW Std Deviation 43.4 (36.4-46.3) fL RDW Coeff of Shazia 14.8 H (11.5-14.5) % Plt Count 213 (130-400) K/uL MPV 10.0 (7.4-10.4) fL Immature Gran % (Auto) 0.3 % Neut % (Auto) 57.1 % Lymph % (Auto) 31.7 % York % (Auto) 9.8 % Eos % (Auto) 0.8 % Baso % (Auto) 0.3 % Immature Gran # (Auto) 0.02 (0.00-0.02) K/uL Neut # (Auto) 4.46 (1.4-6.5) K/uL Lymph # (Auto) 2.47 (1.2-3.4) K/uL York # (Auto) 0.76 H (0.11-0.59) K/uL Eos # (Auto) 0.06 (0-0.5) K/uL Baso # (Auto) 0.02 (0-0.2) K/uL Sodium 140 (136-145) mmol/L Potassium 3.7 (3.5-5.1) mmol/L Chloride 107 (98-107) mmol/L Carbon Dioxide 27 (21-32) mmol/L Anion Gap 7.0 (3-11) BUN 8 D (7-18) mg/dl Creatinine 0.98 (0.6-1.2) mg/dl Est Cr Clr Drug Dosing 119.1 ml/min Est GFR ( Amer) 92.9 Est GFR (Non-Af Amer) 80.2 BUN/Creatinine Ratio 7.7 L (10-20) Glucose 125 H (70-99) mg/dl Calcium 9.1 (8.5-10.1) mg/dl Total Bilirubin (0.2-1) mg/dl AST (15-37) U/L ALT (12-78) U/L Alkaline Phosphatase (45-117) U/L Total Protein (6.4-8.2) gm/dl Albumin (3.4-5.0) gm/dl Globulin (2.5-4.0) gm/dl Albumin/Globulin Ratio (0.9-2) Lipase (73-393) U/L Urine Color Urine Appearance (Clear) Urine pH (4.5-7.5) POC Urine pH (4.5-7.5) Ur Specific Vaughan (1.000-1.030) Urine Protein (Negative) POC Urine Protein (Negative) Urine Glucose (UA) (Negative) POC Ur Glucose (UA) (Normal) Urine Ketones (Negative) POC Urine Ketones (Negative) Urine Blood (Negative) POC Urine Blood (Negative) Urine Nitrite (Negative) POC Urine Nitrite (Negative) Urine Bilirubin (Negative) POC Urine Bilirubin (Negative) Urine Urobilinogen (Negative) POC Urine Urobilinogen (Normal) Ur Leukocyte Esterase (Negative) POC U Leukocyte Esteras (Negative) Urine WBC (Auto) (0-5) /hpf Urine RBC (Auto) (0-4) /hpf U Hyaline Cast (Auto) (0-5) /lpf U Epithel Cells (Auto) (0-5) /lpf Urine Bacteria (Auto) (Negative) Urine Yeast POC Ur Test (NEG) Imaging Data Radiologist's Impression: Radiology results as stated below per my review and the radiologist's interpretation US gallbladder CLINICAL HISTORY: 27 years-old Female presenting with RUQ pain. TECHNIQUE: Real-time grayscale and limited color Doppler ultrasound imaging of the abdomen limited to the right upper quadrant was performed. COMPARISON: None. FINDINGS: Pancreas: Visualized portions of the pancreatic head and body normal. Liver: Moderately hyperechogenic parenchyma with partial obscuration of the right hemidiaphragm, likely indicating moderate steatosis. The liver measures 17.4 cm in maximal sagittal dimension. No sonographic evidence of hepatic mass. Main portal vein patent with normal directional flow. Biliary: No intrahepatic biliary ductal dilatation. Common bile duct measures up to 5 mm in diameter. Gallbladder: Nonmobile gallstone at the gallbladder neck measuring 1.5 cm. Gallbladder sludge also apparent. No gallbladder wall thickening, pericholecystic fluid or inflammatory change. The gallbladder is not convincingl y pathologically distended. Sonographic Bender's sign positive. Right kidney: Normal in appearance without evidence of hydronephrosis. Ascites: None. Other: None. IMPRESSION: 1. Cholelithiasis. Cholecystitis is not favored though the positive sonographic Bender's sign makes this study equivocal for this diagnosis. Further evaluation with nuclear medicine HIDA scan to be considered if there is clinical concern. 2. Hepatic steatosis. Correlate with liver function tests to exclude steatohe patitis as a cause for abdominal pain. Electronically signed by: Helder Melton M.D. 08/24/2018 1:21 PM ECG Data Attestation: I personally reviewed and interpreted this ECG as follows: Indication: abdominal pain Rate (beats per minute): 71 Rhythm: sinus with SA Findings: + other (QTC 439); no PAC, no PVC, no ST depression, no ST elevation, no acute ischemic change and no ectopy Blood Pressure Blood Pressure Findings: Normal blood pressure MDM Narrative This patient was evaluated and appeared to be in no significant distress. IV access was obtained and laboratory work was drawn. Patient was hydrated with normal saline solution, given IV morphine and Zofran. Ultrasound the right upper quadrant was performed and reveals cholelithiasis and a stone in the gallbladder neck. Laboratory work is fairly reassuring, however the patient did request additional pain medication. On my reevaluation, she is tender in the right upper quadrant. General surgery was consulted, Dr. Luciano. He has plans to take the patient to the operating room for definitive management. She is aware of the plan and agrees. Impression & Plan Acute cholecystitis Discharge Plan Visit Data *Final* Discharge Date/Time: 08/24/18 15:00 Chief Complaint: Abdominal Pain Stated Complaint: SEVERE STOMACH PAIN ED Provider: Aracely Meng Discharge Problem: Acute cholecystitis Patient Disposition: Admitted As Inpatient Discharge Instructions Interventions: ED Discharge Assessment Last Done: 08/24/18 14:48 The scribe's documentation has been prepared under my direction and personally reviewed by me in its entirety. I confirm that the note above accurately reflects all work, treatment, procedures, and medical decision making performed by me.
--- NOTE | 2018-08-24 17:39 | Anesthesiology Progress Note ---
Date of Service August 24, 2018 Anesthesia Post Procedure Vital Signs Vital Signs: Temp Pulse Pulse Pulse Resp BP BP 08/24/18 17:20 36.4 C L 61 18 143/70 H 08/24/18 17:10 71 18 145/71 H 08/24/18 17:00 63 22 142/73 H 08/24/18 16:50 36.2 C L 64 20 151/78 H 08/24/18 15:00 36.7 C 83 16 135/79 08/24/18 14:40 99 H 16 129/90 08/24/18 13:46 56 L 16 141/82 H 08/24/18 12:48 64 18 131/77 08/24/18 12:16 55 L 18 132/86 08/24/18 11:49 36.8 C 74 20 130/87 Pulse Ox 08/24/18 17:20 99 08/24/18 17:10 99 08/24/18 17:00 100 08/24/18 16:50 99 08/24/18 15:00 99 08/24/18 14:40 100 08/24/18 13:46 99 08/24/18 12:48 98 08/24/18 12:16 96 08/24/18 11:49 99 Pain Intensity Abdomen: Pain Intensity: 9 Notes Mental Status: alert / awake / arousable and participated in evaluation Patient Amnestic to Procedure: Yes Nausea / Vomiting: adequately controlled Pain: adequately controlled Airway Patency, RR, SpO2: stable & adequate BP & HR: stable & adequate Hydration State: stable & adequate Anesthetic Complications: no major complications apparent and Pt Satisfied with anesthetic care
[2018-08-24] MEDS: MoRPHine SULFATE 4 MG/ML 1 ML CARP\\VIAL IV PRN ×2 (18:23→23:38)
[2018-08-24] MEDS: ONDANSETRON INJ 2 MG/ML 2 ML VIAL IV PRN (19:55)
[2018-08-24] MEDS: LACTATED RINGER'S 1,000 ML IV SCH (21:22)
[2018-08-24] MEDS: cefOXitin 2,000 MG in DEXTROSE 5% 50 ML IV SCH (21:28)
[2018-08-25] MEDS: cefOXitin 2,000 MG in DEXTROSE 5% 50 ML IV SCH ×3 (04:26→15:10)
[2018-08-25] MEDS: ONDANSETRON INJ 2 MG/ML 2 ML VIAL IV PRN ×4 (04:27→23:30)
[2018-08-25] MEDS: MoRPHine SULFATE 4 MG/ML 1 ML CARP\\VIAL IV PRN (04:49)
[2018-08-25 06:30] LABS: Basophils # (auto) 0.01 K/uL (0-0.2); Basophils % (auto) 0.1 %; Hematocrit (blood only) 38.4 % (37-47); Hemoglobin 13.2 g/dL (12.0-16.0); Immature Granulocytes # (auto) 0.03 K/uL (0.00-0.02); Immature Granulocytes % (auto) 0.2 %; Lymphocytes # (auto) 1.44 K/uL (1.2-3.4); Lymphocytes % (auto) 10.8 %; Mean Corpuscular Hgb Conc 34.4 g/dL (32-36); Mean Corpuscular Volume 79.2 fL (80-100); Monocytes # (auto) 1.09 K/uL (0.11-0.59); Monocytes % (auto) 8.2 %; Neutrophils % (auto) 80.7 %; Platelet Count 268 K/uL (130-400); RDW Coefficient of Variation 14.5 % (11.5-14.5); RDW Standard Deviation 40.8 fL (36.4-46.3); Red Blood Count 4.85 M/uL (4.2-5.4); White Blood Count 13.37 K/uL (4.8-10.8)
[2018-08-25 07:00] LABS: BUN Creatinine Ratio 7.7 (10-20); Calcium 9.1 mg/dl (8.5-10.1); Creatinine Clr Calc Pharmacy 119.1 ml/min; Est GFR (African American) 92.9; Est GFR (Non-African American) 80.2; Potassium 3.7 mmol/L (3.5-5.1)
[2018-08-25] MEDS: LACTATED RINGER'S 1,000 ML IV SCH (07:37)
[2018-08-25] MEDS: SERTRALINE HCL 50 MG TABLET PO SCH (09:20)
[2018-08-25] MEDS: FERROUS SULFATE 325 MG TAB PO SCH (09:20)
--- NOTE | 2018-08-25 09:23 | Surgery Progress Note ---
Date of Service August 25, 2018 Assessment & Plan (1) Encounter for pre-operative examination: POD 1 lap appy/patricia acute vs chronic cholecystitis appendix appeared acutely inflamed advance diet, ambulate WBC 13, continue IV abx today, likely home tomorrow as above. not quite ready for d/c ambulate today and advance diet hopeful d/c tomorrow. [facility] covering for weekend. Subjective some nausea last night, better this AM, on clears Physical Exam Vital Signs (Past 24 Hours): Last Vital Signs Temp 36.6 C 08/25/18 07:17 Pulse 64 08/25/18 07:17 Resp 18 08/25/18 07:17 BP 101/63 08/25/18 07:17 Pulse Ox 95 08/25/18 07:17 Gastrointestinal (Abdomen): Inspection/Auscultation: + abdominal surgical incision (dry) Percussion/Palpation: abdomen soft
[2018-08-25] MEDS: HYDROCODONE/ACETAMOPHEN 5/325MG TAB PO PRN ×3 (09:41→20:17)
[2018-08-25 15:09] VITALS: O2SAT 96
[2018-08-26] MEDS: HYDROCODONE/ACETAMOPHEN 5/325MG TAB PO PRN ×3 (03:29→12:51)
[2018-08-26 07:11] LABS: Basophils # (auto) 0.02 K/uL (0-0.2); Basophils % (auto) 0.3 %; Eosinophils # (auto) 0.06 K/uL (0-0.5); Eosinophils % (auto) 0.8 %; Hematocrit (blood only) 36.2 % (37-47); Hemoglobin 12.3 g/dL (12.0-16.0); Immature Granulocytes # (auto) 0.02 K/uL (0.00-0.02); Immature Granulocytes % (auto) 0.3 %; Lymphocytes # (auto) 2.47 K/uL (1.2-3.4); Lymphocytes % (auto) 31.7 %; Monocytes # (auto) 0.76 K/uL (0.11-0.59); Monocytes % (auto) 9.8 %; Neutrophils # (auto) 4.46 K/uL (1.4-6.5); Neutrophils % (auto) 57.1 %; Platelet Count 213 K/uL (130-400); RDW Coefficient of Variation 14.8 % (11.5-14.5); RDW Standard Deviation 43.4 fL (36.4-46.3); Red Blood Count 4.47 M/uL (4.2-5.4); White Blood Count 7.79 K/uL (4.8-10.8)
[2018-08-26 07:13] VITALS: BP 100/63; PULSE 53; TEMP 97.5
[2018-08-26] MEDS: FERROUS SULFATE 325 MG TAB PO SCH (08:44)
[2018-08-26] MEDS: SERTRALINE HCL 50 MG TABLET PO SCH (08:45)
[2018-08-26] MEDS ORDERED: ONDANSETRON 4 MG TAB PO PRN (09:46)
--- NOTE | 2018-08-26 10:32 | Progress Note ---
Date of Service August 26, 2018 Assessment & Plan (1) Cholelithiasis: Present on Admission?: Yes (2) Acute appendicitis: Pt is s/p 08/24/18 laparoscopic appendectomy and cholecystectomy. She had some nausea, but in part related to jello specifically. Vitals and labs are stable. - Encourage ambulation and incentive spirometer - PO analgesia PRN - Zofran PRN for nausea - Regular diet - D/c home today if tolerates meal and nausea is improved Present on Admission?: Yes Subjective Patient had nausea overnight, states that jello doesn't settle well with her. Uriostegui s some pain, but appears comfortable at this time. Yesterday was light headed when walking. Physical Exam Vital Signs (Past 24 Hours): Last Vital Signs Temp 36.4 C L 08/26/18 07:12 Pulse 53 L 08/26/18 07:12 Resp 16 08/26/18 07:12 BP 100/63 08/26/18 07:12 Pulse Ox 96 08/26/18 07:12 Constitutional: no acute distress Respiratory: normal respiratory effort Cardiovascular: Rate/Rhythm: regular rate Gastrointestinal (Abdomen): soft, nondistended, appropriate incisional tendnerness, mild ecchymosis around lower midline incision. Results & Data Laboratory Results 08/26/18 Range/Units 06:44 WBC 7.79 (4.8-10.8) K/uL RBC 4.47 (4.2-5.4) M/uL Hgb 12.3 (12.0-16.0) g/dL Hct 36.2 L (37-47) % MCV 81.0 (80-100) fL MCH 27.5 (25-34) pg MCHC 34.0 (32-36) g/dL RDW Std Deviation 43.4 (36.4-46.3) fL RDW Coeff of Shazia 14.8 H (11.5-14.5) % Plt Count 213 (130-400) K/uL MPV 10.0 (7.4-10.4) fL Immature Gran % (Auto) 0.3 % Neut % (Auto) 57.1 % Lymph % (Auto) 31.7 % Baker % (Auto) 9.8 % Eos % (Auto) 0.8 % Baso % (Auto) 0.3 % Immature Gran # (Auto) 0.02 (0.00-0.02) K/uL Neut # (Auto) 4.46 (1.4-6.5) K/uL Lymph # (Auto) 2.47 (1.2-3.4) K/uL Baker # (Auto) 0.76 H (0.11-0.59) K/uL Eos # (Auto) 0.06 (0-0.5) K/uL Baso # (Auto) 0.02 (0-0.2) K/uL
--- NOTE | 2018-08-28 09:35 | Discharge Summary ---
PRIMARY DISCHARGE DIAGNOSES: 1. Acute appendicitis. 2. Cholelithiasis, chronic cholecystitis. PROCEDURE PERFORMED: Laparoscopic cholecystectomy and appendectomy. HOSPITAL COURSE: The patient is a 27-year-old female who presented to the Emergency Department with a complaint of right upper quadrant pain. She had an ultrasound which showed 1.5-cm gallstone in the gallbladder neck. There were not significant inflammatory changes, although her white count was 15,000. She was taken to the operating room that afternoon for a laparoscopic cholecystectomy. She did have a distended gallbladder with omental adhesions. She also appeared to have a thickened, acutely inflamed appendix. We proceeded with cholecystectomy and appendectomy. Procedure was well tolerated. She was transferred to the surgical floor. Perioperative Mefoxin was continued. She had some nausea on postoperative day 1. By day 2, she was able to tolerate an advancing diet. Her pain was managed with oral analgesics. She was stable for discharge home later in the day. Her white count had normalized to 7. DISCHARGE INSTRUCTIONS: Discharge home. Follow up with Dr. Luciano in approximately 2 weeks. DISCHARGE MEDICATIONS: [place] 1-2 tablets every 4 hours as needed. Continue her home medications, sertraline 150 mg daily, ferrous sulfate 325 mg daily, vitamin D3 supplement 5000 units daily.
== END 2018-08-26 15:50 | disposition home or self-care (01) ==
LOC: ED 11:45 → 3W 15:00 → ASU 15:00